=== PATIENT | female | born 2000 | race Caucasian/White ===

== ENCOUNTER 2023-05-10 11:13 | Emergency (ER) | payer SELFPAY ==
[~2023-05-10] VITALS: Ht 175.3 cm; Wt 127.0 kg
[~2023-05-10 11:13] MED LIST: ARIP10TA9 PO; HYDR25TA PO; LAMO25TA5 PO; VENL150C3 PO; Venlafaxine Hcl PO; [UNRECOGNIZED DRUG - CODE] PO
[2023-05-10 11:28] LABS: BILIRUBIN,URINE NEGATIVE (NEGATIVE); LEUKOCYTE ESTERASE ,URINE NEGATIVE (NEGATIVE); NITRATE,URINE NEGATIVE (NEGATIVE); PH,URINE 6.5 (4.5-8.0); UROBILINOGEN,URINE 0.2 E.U./dL (0.2)
[2023-05-10 11:29] LABS: APPEARANCE,URINE CLEAR; UA COLOR YELLOW
[2023-05-10 11:30] VITALS: BP 150/71; PULSE 98; RESP 22; TEMP 97.9; O2SAT 98
[2023-05-10 11:35] LABS: BASOPHIL % 0.1 % (0.0-0.2); EOSINOPHIL # 0.3 10^3/uL (0.0-0.2); EOSINOPHIL % 2.6 % (0.0-5.0); HEMATOCRIT(ML) 46.7 % (36.0-46.0); HEMOGLOBIN 15.8 g/dL (12.0-15.0); LYMPHOCYTES # 2.06 10^3/uL1 (1.0-4.8); LYMPHOCYTES % 21.8 % (24.0-44.0); MEAN CORP HGB 30.6 pg (26-34); MEAN CORP HGB CONCENTRATION 33.8 g/dL (33-36.5); MEAN CORP VOLUME 90.5 fL (78-100); MONOCYTES # 0.4 10^3/uL (0.3-0.8); MONOCYTES % 4.5 % (5.0-12.0); NEUTROPHIL # 6.7 10^3/uL (1.8-7.7); NEUTROPHILS % 70.9 % (41.0-85.0); PLATELET COUNT 246 10^3/uL (150-400); RED BLOOD CELL 5.16 10^6/uL (4.00-5.20); RED CELL DISTRIBUTION WIDTH 12.9 % (11.5-14.5); WHITE BLOOD CELL 9.5 10^3/uL (4.5-11.0)
[2023-05-10 11:36] LABS: UAMPH METHAMP(SCRN) NEGATIVE (co1000ng/mL); UR MDMA (ECSTASY) SCRN NEGATIVE (c/o300ng/mL); UR METHADONE SCRN NEGATIVE (c/o300ng/mL); UR OPIATE SCRN NEGATIVE (c/o300ng/mL); UR PHENCYCLIDINE (PCP) SCRN NEGATIVE (c/o 25ng/mL)
[2023-05-10 11:38] LABS: UR TETRAHYDROCANNABINOL SCRN PRESUMPTIVE POSITIVE (c/o 50ng/mL)
[2023-05-10 11:38] LABS: +ADD MANUAL DIFF(NO CHRG) NO
[2023-05-10 12:04] LABS: ALANINE AMINOTRANSFERASE(ML) 20 U/L (12-78); ALBUMIN(ML) 3.6 g/dL (3.4-5.0); ALBUMIN/GLOBULIN RATIO 0.857; ALKALINE PHOSPHATASE 71 U/L (50-136); ANION GAP 17.5; ASPARTATE AMINO TRANSFERASE 11 U/L (0-35); CALCIUM 9.7 mg/dL (8.4-10.5); CARBON DIOXIDE 20.6 mmol/L (20.0-32); CREATININE SERUM 0.87 mg/dL (0.59-1.40); EST GFR, NON-AA 82.2 (>/=60); GLUCOSE 97 mg/dL (74-106); POTASSIUM 4.1 mmol/L (3.6-5.2); SALICYLATE(ML) 3.7 mg/dL (2.8-20.0); SODIUM 137 mmol/L (132-145)
[2023-05-10 12:06] LABS: ACETAMINOPHEN(ML) < 3 ug/mL (10-30)
== END 2023-05-10 13:59 | disposition home or self-care (01) ==
LOC: ER 11:13
DX: R45.851 Suicidal ideations (principal); F32.A Depression, unspecified; F41.9 Anxiety disorder, unspecified; I10 Essential (primary) hypertension; F12.90 Cannabis use, unspecified, uncomplicated
CPT/HCPCS: 36415; 80053; 80299; 80307; 80349; 81003; 82077; 84443; 84703; 85025; 93005; 99284; G0480